=== PATIENT | male | born 1990 | race Two or more races ===

== ENCOUNTER → 2024-06-25 | Outpatient (CLI) | payer BC, SELFPAY ==
--- NOTE | 2024-06-25 14:05 | XR_ITS ---
Examination: Sacroiliac joints 3 views Technique: AP, UMANZOR SLOVAK sacroiliac joints 3 views Exam date and time: June 25, 2024 1326 hrs. Indications: Sacral pain beginning 2 years ago. Findings: Mild bilateral sacroiliitis No fracture No diastases SI joints Impression: Mild bilateral sacroiliitis
--- NOTE | 2024-06-25 14:05 | XR_ITS ---
Examination: Lumbar spine, 5 views Technique: Lumbar spine AP, lateral, coned lateral lower lumbar spine, bilateral obliques 5 views Exam date and time: June 25, 2024 1324 hrs. Indications: Low back pain beginning 2 years ago. Findings: Adequate alignment lumbar vertebral bodies on the lateral view Mild to moderate diffuse lumbar disc narrowing No spondylolisthesis Moderate lumbar spondylosis Impression: Mild to moderate diffuse lumbar degenerative disc disease
== END | disposition home or self-care (01) ==
LOC: CDIM 13:57
PROVIDERS: PCP Physician Assistant; Referring Provider Chiropractor; Visit Provider Chiropractor
DX: M46.1 Sacroiliitis, not elsewhere classified (principal); M51.369 Other intervertebral disc degeneration, lumbar region without mention of lumbar back pain or lower extremity pain
CPT/HCPCS: 72110; 72202